=== PATIENT | female | born 1955 | race Caucasian/White ===

== ENCOUNTER → 2017-02-28 | Outpatient (CLI) | payer BC ==
--- NOTE | 2017-02-28 14:55 | MAMMOGRAPHY REPORT ---
BILATERAL DIGITAL DIAGNOSTIC MAMMOGRAM TOMOSYNTHESIS WITH CAD AND TARGETED BILATERAL ULTRASOUND: 02/28 CLINICAL HISTORY: 61-year-old woman presents for follow-up of probable complicated cysts in both yao sts, which may have correlated with asymmetries in the superior aspect of each breast on the MLO view s. TECHNIQUE: Bilateral breast tomosynthesis in addition to standard 2D mammography was performed. Curre nt study was also evaluated with a Computer Aided Detection (CAD) system. COMPARISON: Comparison is made to exams dated: 08/30/2016 ultrasound, 08/30/2016 mammogram, 08/23/20 16 mammogram, 08/19/2015 mammogram, 08/16/2014 mammogram, and 06/22/2013 mammogram - [facility]. BREAST COMPOSITION: The tissue of both breasts is extremely dense, which lowers the sensitivity of m ammography. FINDINGS: A previously observed around circumscribed 6.1 mm mass in the superior posterior left breas t on the MLO view is no longer clearly identified. A previously observed 7.1 mm nodular asymmetry in the superior posterior right breast, projecting over the pectoralis muscle on the MLO view is no christine randi identified. No suspicious spiculated or irregular mass, focal area of architectural distortion o r new suspicious calcifications are seen. There are diffuse round and punctate microcalcifications i n both breasts. Targeted ultrasound was performed throughout the superior aspect of each breast with particular atten tion to the left 2:00 and right 11:00 axes. In the 2:00 left breast, 2 cm from the nipple, there is an oval circumscribed predominantly anechoic cyst with posterior acoustic enhancement, measuring 4.7 x 3.5 x 4.5 mm. This previously measured 4.9 x 3.6 x 4.9 mm. In the 3:00 periareolar left breast, a nother circumscribed oval anechoic benign stable cyst is seen measuring 4.1 x 3.0 x 3.8 mm. In the r ight 11:00 axis, 1 cm from the nipple, an oval circumscribed predominantly anechoic cyst with posteri or acoustic enhancement is identified. There is a small amount of echogenic internal nonvascular carmen ris. This measures 3.3 x 2.4 x 3.5 mm. This previously measured 2.9 x 2.7 x 3.2 mm but does not lorena ear significantly changed given slight differences in technique. A few other cystic-appearing masses are seen in the 9:00 periareolar right breast measuring 3.6 and 4.2 x 3.8 mm. This most likely repr esent complicated cysts. IMPRESSION: ACR-BI-RADS CATEGORY 3: PROBABLY BENIGN, TARGETED ULTRASOUND ACR-BI-RADS CATEGORY 3: PRO BABLY BENIGN The cystic-appearing masses in the left 2:00 and right 11:00 axes have not significantly changed comp aring to the prior ultrasound and most likely represents benign complicated cysts. Another six-month follow-up bilateral targeted ultrasound is recommended to ensure at least one year stability. 2. There are two newly visualized probable complicated cysts in the 9:00 periareolar right breast fo r which a repeat targeted ultrasound is also recommended in 6 months. 3. The current mammograms demonstrate decreasing nodularity in the superior aspect of the breasts. There is no definite mammographic evidence of malignancy. Annual bilateral screening mammography is also due at the time of next follow-up appointment. These results and recommendations were discussed with the patient at the time of the exam. Approximately 10% of breast cancers are not detected with mammography. A negative mammographic report should not delay biopsy if a clinically suggestive mass is present. Anne Marie Cortes M.D. ay/:02/28/2017 09:51:33 Vegetable Washer: Rhea APARICIO(Gerard)(M), [facility] letter sent: Follow Up Recommended 3 BI-RADS Code: ACR-BI-RADS Category 3: Probably Benign Ultrasound BI-RADS: ACR-BI-RADS Category 3: Pr obably Benign
== END | disposition home or self-care (01) ==
LOC: C.MAMM 08:59
PROVIDERS: ATTEND Obstetrics & Gynecology
DX: Z09 Encounter for follow-up examination after completed treatment for conditions other than malignant neoplasm (principal); N63 Unspecified lump in breast

== ENCOUNTER → 2017-08-29 | Outpatient (CLI) | payer BC ==
--- NOTE | 2017-08-30 07:53 | MAMMOGRAPHY REPORT ---
BILATERAL DIGITAL SCREENING MAMMOGRAM TOMOSYNTHESIS WITH CAD: 08/29/2017 CLINICAL HISTORY: Routine screening. Patient failed to follow-up for a previously recommended repe at targeted ultrasound for ultrasound only findings in the breasts. TECHNIQUE: Bilateral breast tomosynthesis in addition to standard 2D mammography was performed. Curre nt study was also evaluated with a Computer Aided Detection (CAD) system. COMPARISON: Comparison is made to exams dated: 02/28/2017 ultrasound, 02/28/2017 mammogram, 08/30/2016 mammogram, 08/23/2016 mammogram, 08/19/2015 mammogram, and 08/16/2014 mammogram - [facility]. BREAST COMPOSITION: The tissue of both breasts is extremely dense, which lowers the sensitivity of m ammography. FINDINGS: An asymmetry in the superior posterior left breast on the MLO view appears similar to the 2016 mammogram and there is no evidence of a mass in this area on the corresponding tomosynthesis chelly ges, suggesting benign overlapping tissue. Decreased prominence of an asymmetry in the superior post erior right breast on the MLO view. Diffuse bilateral benign-appearing microcalcifications. No susp icious spiculated or irregular mass, architectural distortion, developing asymmetry or new cluster of microcalcifications is seen. IMPRESSION: ACR BI-RADS CATEGORY 0: INCOMPLETE EVALUATION: NEED ADDITIONAL IMAGING EVALUATION 1. No mammographic evidence of malignancy in the breasts. 2. However, the patient has extremely dense breast parenchyma which can obscure small masses, and sh e failed to follow-up for a previously recommended a bilateral breast targeted ultrasound to ensure s tability of indeterminate solid versus cystic benign-appearing masses in both breasts. In particular , hypoechoic subcentimeter masses in the 9:00 periareolar right breast were incidentally identified o n the 02/28/2017 ultrasound and no stability has been documented. The patient will be called to schedule an appointment. Approximately 10% of breast cancers are not detected with mammography. A negative mammographic report should not delay biopsy if a clinically suggestive mass is present. Anne Marie Cortes M.D. ay/:08/29/2017 18:18:25 Visual Effects Editor: Rhea APARICIO(Gerard)(M), [facility] letter sent: Addl Imaging 0 BI-RADS Code: ACR BI-RADS Category 0: Incomplete Evaluation: Need Additional Imaging Evaluation
== END | disposition home or self-care (01) ==
LOC: C.MAMM 10:57
PROVIDERS: ATTEND Obstetrics & Gynecology
DX: Z12.31 Encounter for screening mammogram for malignant neoplasm of breast (principal); R92.2 Inconclusive mammogram

== ENCOUNTER → 2017-09-01 | Outpatient (CLI) | payer BC ==
--- NOTE | 2017-09-01 14:35 | MAMMOGRAPHY REPORT ---
ULTRASOUND OF BOTH BREASTS: 09/01/2017 CLINICAL HISTORY: Callback from screening mammogram to work up bilateral breast masses seen on prior ultrasound exams, for which follow-up was recommended. COMPARISON: Comparison is made to exams dated: 08/29/2017 mammogram, 02/28/2017 ultrasound, 02/28/2017 mammogram, 08/30/2016 ultrasound, 08/30/2016 mammogram, and 08/23/2016 mammogram - [facility]. TECHNIQUE: Real-time targeted ultrasound of both breasts was performed. FINDINGS: Real-time, high-resolution targeted ultrasound was performed of the area of the previously seen left breast mass for which follow-up was recommended. In the left breast at 2:00, 2 cm from th e nipple, there is a round circumscribed nearly anechoic mass which measures 4 x 4 x 3 mm. This is s table dating back to the August 2016 exam and is consistent with a benign cyst. Real time, high-resolution targeted ultrasound was performed of the area of the previously seen right breast masses for which follow-up was recommended. In the right breast at 11:00, 1 cm from the nipp le, there is a round circumscribed nearly anechoic 3 x 2 x 3 mm mass. This is stable compared to the August 2016 exam and is benign and compatible with a cyst. There is also an oval anechoic benign 5 mm simple cyst seen within the right 9:00 periareolar breast. There are other dilated tubular struc tures in the right 9:00 periareolar breast which during real time scanning are shown to represent daniel ts and are compatible with duct ectasia. No suspicious solid masses are evident. IMPRESSION: ACR BI-RADS CATEGORY 2: BENIGN Small circumscribed benign-appearing masses in the left 2:00 and right 11:00 breast are stable dating back to the August 2016 exam, and are benign and compatible with cysts. Benign duct ectasia is se en within the right 9:00 periareolar breast. There is no sonographic evidence of malignancy. A 1 ye ar screening mammogram is recommended. The patient was verbally notified of the results. Antoinette Reyes M.D. /:09/01/2017 10:06:00 Ct Technician: Antoinette Reyes MD, [facility] letter sent: Normal 1/2 BI-RADS Code: ACR BI-RADS Category 2: Benign
== END | disposition home or self-care (01) ==
LOC: C.MAMM 09:42
PROVIDERS: ATTEND Obstetrics & Gynecology
DX: N63.10 Unspecified lump in the right breast, unspecified quadrant (principal); N63.20 Unspecified lump in the left breast, unspecified quadrant

== ENCOUNTER → 2018-04-14 | Outpatient (CLI) | payer OTHER | END | disposition home or self-care (01) | LOC: C.PAPS 17:11 | PROVIDERS: ATTEND Obstetrics & Gynecology | DX: Z01.419 Encounter for gynecological examination (general) (routine) without abnormal findings (principal) ==

== ENCOUNTER → 2018-04-14 | Outpatient (CLI) | payer OTHER | END | disposition home or self-care (01) | LOC: C.PATHSPEC 16:42 | PROVIDERS: ATTEND Obstetrics & Gynecology | DX: N84.1 Polyp of cervix uteri (principal) ==